=== PATIENT | male | born 1990 | race Caucasian/White ===

== ENCOUNTER 2022-10-30 08:58 | Emergency (ER) | payer OTHER, SELFPAY ==
[2022-10-30 09:06] VITALS: BP 128/82; PULSE 82; RESP 16; TEMP 36.7; O2SAT 99; BMI 22.8
--- NOTE | 2022-10-30 09:10 | DI.RAD.S_ITS ---
PROCEDURE: XR FINGER RT MIN 2V INDICATIONS: thumb injury TECHNIQUE: AP hand, 2 views of the 1st finger(s) acquired. COMPARISON: None. FINDINGS: Bones: No fractures or dislocations. No suspicious bony lesions. Soft tissues: No suspicious soft tissue calcifications. IMPRESSION: No displaced fracture. Dictated by: Sidney Cramer M.D. on 10/30/2022 at 9:33 Approved by: Sidney Cramer M.D. on 10/30/2022 at 9:34
--- NOTE | 2022-10-30 09:11 | ED.GENADULT ---
HPI - General Adult General Chief complaint: Extremity Injury, Upper Stated complaint: possible broken thumb Time Seen by Provider: 10/30/22 09:07 Source: patient Mode of arrival: Ambulatory History of Present Illness HPI narrative: 32-year-old right-hand dominant male who is here for evaluation of an injury that he sustained yesterday to his right thumb. He states he was closing a gate in jammed his thumb. Since that time he is had pain in the area. No other injuries from the event. Did arrive with his own wrist brace in place. Related Data Home Medications Medication Instructions Recorded Confirmed No Known Home Medications 05/25/22 05/25/22 Allergies Allergy/AdvReac Type Severity Reaction Status Date / Time No Known Drug Allergies Allergy Verified 10/30/22 09:08 Review of Systems Constitutional Constitutional: Reports system reviewed and no additional complaints, except as documented Musculoskeletal Musculoskeletal: Reports system reviewed and no additional complaints, except as documented Integumentary/Breasts Skin/Breast: Reports system reviewed and no additional complaints, except as documented Neurologic Neurologic: Reports system reviewed and no additional complaints, except as documented Patient History Medical History Impacted cerumen, left ear Social History Smoking Status: Former smoker Smoking Status: Former smoker alcohol intake frequency: 0-2 drinks per day Substance Use Type: does not use Exam Initial Vital Signs Initial Vital Signs: Vital Signs Temperature 98.0 F 10/30/22 09:06 Pulse Rate 82 10/30/22 09:06 Respiratory Rate 16 10/30/22 09:06 Blood Pressure 128/82 10/30/22 09:06 Pulse Oximetry 99 10/30/22 09:06 Oxygen Delivery Method Room Air 10/30/22 09:06 Const General: cooperative, comfortable and No ill appearing HENDC Head: normal to inspection and normocephalic Cardio Pulses: radial pulses present on the right Skin Other: Bruising around the thenar eminence of the right hand. Neuro General: patient alert and patient awake Sensory Exam: no sensory deficits noted Extrem Other: Tenderness over the MCP joint of the right thumb. No tenderness of the IP joint. No Tenderness over the anatomic snuffbox Course Orders Ordered: ED Orders 10/30/22 09:10 XR finger RT min 2V Stat Vital Signs Vital signs: Vital Signs - 8 hr // 09:06 Temperature 98.0 F Pulse Rate 82 Respiratory Rate 16 Blood Pressure 128/82 Pulse Oximetry 99 Oxygen Delivery Method Room Air Medical Decision Making Imaging Data Extremity x-ray #1: Radiologist's Impression: PROCEDURE:? XR FINGER RT MIN 2V ? INDICATIONS:? thumb injury ? TECHNIQUE:? AP hand, 2 views of the 1st finger(s) acquired.? ? COMPARISON:? None. ? FINDINGS:? ? Bones:? No fractures or dislocations.? No suspicious bony lesions.? ? Soft tissues:? No suspicious soft tissue calcifications.? ? IMPRESSION:? No displaced fracture MDM Narrative Medical decision making narrative: Patient does have bruising along the base of his thumb. No fractures noted on the x-rays. Patient has neurovascularly intact. Discussed this with the patient. Discussed conservative measures. He was given return precautions. He expressed understanding and agreement with plan. Discharge Plan Departure Patient Disposition: Home Clinical Impression: Contusion of finger, right Instructions: How To Perform RICE (Rest, Ice, Compress, Elevate) Activity Restrictions/Additional Instructions: There were no fractures noted on the x-rays today. Recommend that you keep ice over the area. If your symptoms have not improved within the next week you may require further imaging studies. Return to the emergency department for new symptoms. Prescriptions: No Action No Known Home Medications Referrals: Ernestina Iglesias PA-C [Primary Care Provider] - Stand Alone Forms: Patient Portal/API
[2022-10-30 09:53] VITALS: BP 109/68; PULSE 65; O2SAT 100
== END 2022-10-30 09:53 | disposition home or self-care (01) ==
PROVIDERS: Emergency Provider Emergency Medicine; Family Provider Physician Assistant; PCP Physician Assistant
DX: S60.011A Contusion of right thumb without damage to nail, initial encounter (principal); W23.0XXA Caught, crushed, jammed, or pinched between moving objects, initial encounter
CPT/HCPCS: 73140; 99281; 99283

== ENCOUNTER 2023-02-16 14:49 | Emergency (ER) | payer OTHER, SELFPAY ==
[2023-02-16 14:53] VITALS: BP 135/85; PULSE 81; RESP 16; TEMP 36.9; O2SAT 100; BMI 23.6
[2023-02-16 17:33] VITALS: BP 113/42; PULSE 67; RESP 16; O2SAT 99
--- NOTE | 2023-02-16 17:35 | PC.NURSE ---
Pt c/o neck pain, denies numbness, tingling, loss of sensation in extremities, denies loss of bowel/bladder function. Took 600 mg ibuprofen at 1030.
--- NOTE | 2023-02-16 17:41 | ED.NECK ---
HPI - Neck Pain/Injury <Nereyda May PA-C - Last Filed: 02/17/23 14:42> General Chief Complaint: Neck Pain/Injury Stated Complaint: Sore neck Time Seen by Provider: 02/16/23 15:03 Mode of arrival: Ambulatory History of Present Illness HPI Narrative: 32-year-old male presents to the ED with 1 day of right-sided neck pain. Patient states that he was at work doing some heavy work with his arms, when he noticed a twinge in his neck, following which his neck pain worsened. Patient states that his neck feels painful to move, feels like his muscles around the neck and the upper shoulder are in spasm. Patient denies numbness, tingling, weakness. No other trauma. Related Data Previous Rx's Medication Instructions Recorded fluticasone propionate 50 1 spray intranasal Q12H #16 grams 01/19/23 mcg/actuation nasal spray,suspension (Flonase Allergy Relief) cyclobenzaprine 10 mg tablet 10 mg PO TID PRN muscle spasm 3 02/16/23 days #10 tabs Allergies Allergy/AdvReac Type Severity Reaction Status Date / Time No Known Drug Allergies Allergy Verified 10/30/22 09:08 Review of Systems <Nereyda May PA-C - Last Filed: 02/17/23 14:42> Review of Systems ROS Unobtainable: All systems reviewed & are unremarkable except as noted in HPI and below Constitutional Constitutional: Denies chills, Denies fatigue, Denies fever(s), Denies frequent falls, Denies lethargy and Denies weakness Eyes Eyes: Denies change in vision, Denies eye discharge, Denies irritation and Denies loss of vision ENT Ears, Nose, Mouth, and Throat: Denies change in voice, Denies dizziness, Reports neck pain, Denies sore throat and Denies throat swelling Cardiovascular Cardiovascular: Denies chest pain, Denies irregular heart rhythm, Denies lightheadedness, Denies palpitations, Denies dyspnea, Denies dyspnea on exertion and Denies orthopnea Respiratory Respiratory: Denies cough, Denies dyspnea, Denies dyspnea on exertion and Denies wheezing Gastrointestinal Gastrointestinal: Denies abdominal pain, Denies change in bowel habits, Denies diarrhea, Denies nausea and Denies vomiting Genitourinary Genitourinary: Denies hematuria, Denies flank pain, Denies urinary incontinence and Denies urinary urgency Musculoskeletal Musculoskeletal: Denies back pain, Denies muscle weakness, Reports neck pain, Denies numbness and Denies tingling Integumentary/Breasts Skin/Breast: Denies pruritus, Denies erythema, Denies rash and Denies wounds Neurologic Neurologic: Denies behavioral changes, Denies confusion, Denies dizziness, Denies frequent falls, Denies loss of vision, Denies numbness, Denies tingling and Denies weakness Psychiatric Psychiatric: Denies anxiety, Denies behavioral changes, Denies confusion, Denies depression, Denies homicidal ideation and Denies suicidal ideation Endocrine Endocrine: Denies fatigue, Denies flushing and Denies palpitations Hematologic/Lymphatic Hematologic/Lymphatic: Denies easy bruising Allergic/Immunologic Allergic/Immunologic: Denies urticaria, Denies throat swelling and Denies wheezing Patient History <Nereyda May PA-C - Last Filed: 02/17/23 14:42> Medical History Impacted cerumen, left ear Social History Smoking Status: Former smoker Smoking Status: Former smoker alcohol intake frequency: 0-2 drinks per day Substance Use Type: does not use Exam <Nereyda May PA-C - Last Filed: 02/17/23 14:42> Narrative Exam Narrative: Const General:?cooperative, healthy appearing and comfortable [facility] Head:?normal to inspection Ears:?hearing grossly normal bilaterally Nose:?external nose normal Face and sinus:?normal facial exam and sinuses nontender Mouth:?oral mucosae normal Throat:?posterior oropharynx normal Eyes General:?appearance normal, both eyes and all related structures Neck Neck:?normal visual inspection and no lymphadenopathy noted Resp Effort & Inspection:?normal respiratory effort Auscultation:?clear to auscultation bilaterally Cardio Rate:?regular rate Rhythm:?regular rhythm Musculoskeletal There is no midline tenderness to palpation. There is some paraspinal tenderness to palpation. Strength and sensation is intact. Range of motion of neck is limited by pain. Neuro General:?patient alert, patient awake and patient oriented x3 Initial Vital Signs Initial Vital Signs: Vital Signs Temperature 98.5 F 02/16/23 14:53 Pulse Rate 81 02/16/23 14:53 Respiratory Rate 16 02/16/23 14:53 Blood Pressure 135/85 02/16/23 14:53 Pulse Oximetry 100 02/16/23 14:53 Oxygen Delivery Method Room Air 02/16/23 14:53 <Rica Sinclair DO - Last Filed: 02/17/23 18:42> Initial Vital Signs Initial Vital Signs: Vital Signs Temperature 98.5 F 02/16/23 14:53 Pulse Rate 81 02/16/23 14:53 Respiratory Rate 16 02/16/23 14:53 Blood Pressure 135/85 02/16/23 14:53 Pulse Oximetry 100 02/16/23 14:53 Oxygen Delivery Method Room Air 02/16/23 14:53 Course <Nereyda May PA-C - Last Filed: 02/17/23 14:42> Orders Ordered: Discontinued Medications Cyclobenzaprine HCl (Cyclobenzaprine 10 Mg Tablet) 10 mg PO NOW ONE Stop: 02/16/23 17:46 Last Admin: 02/16/23 18:20 Dose: 10 mg Documented By: MPO Ketorolac Tromethamine (Ketorolac 30 Mg/Ml Vial) 30 mg IM NOW ONE Stop: 02/16/23 17:46 Last Admin: 02/16/23 18:19 Dose: 30 mg Documented By: JOSIE Lidocaine (Lidocaine Patch 1 Each Adh..Patch) 1 each TOP NOW ONE Stop: 02/16/23 17:46 Last Admin: 02/16/23 18:19 Dose: 1 each Documented By: MPO Vital Signs Vital signs: Vital Signs - 8 hr 02/16/23 14:53 02/16/23 17:33 Temperature 98.5 F Pulse Rate 81 67 Respiratory Rate 16 16 Blood Pressure 135/85 113/42 L Pulse Oximetry 100 99 Oxygen Delivery Method Room Air <Rica Sinclair DO - Last Filed: 02/17/23 18:42> Orders Ordered: Discontinued Medications Cyclobenzaprine HCl (Cyclobenzaprine 10 Mg Tablet) 10 mg PO NOW ONE Stop: 02/16/23 17:46 Last Admin: 02/16/23 18:20 Dose: 10 mg Documented By: MPO Ketorolac Tromethamine (Ketorolac 30 Mg/Ml Vial) 30 mg IM NOW ONE Stop: 02/16/23 17:46 Last Admin: 02/16/23 18:19 Dose: 30 mg Documented By: JOSIE Lidocaine (Lidocaine Patch 1 Each Adh..Patch) 1 each TOP NOW ONE Stop: 02/16/23 17:46 Last Admin: 02/16/23 18:19 Dose: 1 each Documented By: JOSIE Vital Signs Vital signs: Vital Signs - 8 hr 02/16/23 14:53 02/16/23 17:33 Temperature 98.5 F Pulse Rate 81 67 Respiratory Rate 16 16 Blood Pressure 135/85 113/42 L Pulse Oximetry 100 99 Oxygen Delivery Method Room Air MDM - Neck Pain/Injury <Nereyda May PA-C - Last Filed: 02/17/23 14:42> MDM Narrative Medical decision making narrative: 32-year-old male presents to the ED with 1 day of right-sided neck pain. Patient's symptoms are consistent with a musculoskeletal sprain/strain of the neck. Patient's symptoms improved with cyclobenzaprine, ketorolac, lidocaine patch. Prescribed Flexeril for continued use. Recommend Tylenol, ibuprofen for analgesia. ED return precautions were discussed with patient. Patient verbalized understanding. Medical records reviewed: Yes Discharge Plan Departure Patient Disposition: Home Clinical Impression: Neck pain Instructions: DI for Neck Pain Activity Restrictions/Additional Instructions: You were evaluated in the ED today for neck pain. It appears that you have a musculoskeletal sprain/strain of your neck muscles. Your symptoms improved with lidocaine patch, Flexeril, ketorolac. You may continue to take the Flexeril and ibuprofen for the symptoms. You may also apply lidocaine patches that are available [id number]. Please follow-up with your PCP as soon as possible. Return to the ED if you have worsening symptoms, numbness, tingling, weakness. Prescriptions: New cyclobenzaprine 10 mg tablet 10 mg PO TID PRN (Reason: muscle spasm) 3 Days Qty: 10 0RF No Action fluticasone propionate [Flonase Allergy Relief] 50 mcg/actuation spray,suspension 1 spray intranasal Q12H Qty: 16 0RF Rx Instructions: administer into each nostril Referrals: Ernestina Iglesias PA-C [Primary Care Provider] - Stand Alone Forms: Patient Portal/API <Rica Sinclair DO - Last Filed: 02/17/23 18:42> Cosign ED Attending Cosignature Attestation: I was immediately available in the department for consultation. Documentation has been reviewed.
[2023-02-16] MEDS: KETOROLAC 30 MG/ML VIAL IM (18:19)
[2023-02-16] MEDS: LIDOCAINE PATCH 1 EACH ADH..PATCH TOP (18:19)
[2023-02-16] MEDS: CYCLOBENZAPRINE 10 MG TABLET PO (18:20)
== END 2023-02-16 18:42 | disposition home or self-care (01) ==
PROVIDERS: Emergency Provider Student in an Organized Health Care Education/Training Program; Family Provider Physician Assistant; PCP Physician Assistant
DX: M54.2 Cervicalgia (principal)
CPT/HCPCS: 96372; 99283; J1885